=== PATIENT | female | born 1950 | race Caucasian/White ===

== ENCOUNTER 2018-07-06 15:59 | Emergency (ER) | payer MEDICARE, OTHER ==
[2018-07-06] MEDS ORDERED: NAPROXEN 500 MG TAB PO (16:35)
[2018-07-06] MEDS: IBUPROFEN 800 MG TAB PO (16:50)
== END 2018-07-06 17:52 | disposition home or self-care (01) ==
LOC: FTE 15:59
DX: M25.571 Pain in right ankle and joints of right foot (principal); I10 Essential (primary) hypertension; I25.10 Atherosclerotic heart disease of native coronary artery without angina pectoris; Z79.82 Long term (current) use of aspirin
CPT/HCPCS: 73610; 99283-25